=== PATIENT | female | born 1970 | race Caucasian/White ===

== ENCOUNTER → 2016-07-12 | Outpatient (CLI) | payer MEDICAID ==
[~2016-07-12] MED LIST: B121000 MCG/2 IM; CIPROFLOXACIN500 MG PO; COUMADIN; FERROUS SULFAT325 M1 PO; HYDROCODONE BIT1 T11 PO; KEFLEX500 MG PO; LEVAQUIN750 M1 PO; MOTRIN800 MG PO; OMEPRAZOLE MAGN20 MG PO; PREDNISONE10 MG PO; PROAIR HFA8.5 GM INH; PROVERA10 MG PO; VICODIN 5/500 505 MG PO
== END | disposition home or self-care (01) ==
LOC: RAD 14:59
DX: J18.9 Pneumonia, unspecified organism (principal); F17.200 Nicotine dependence, unspecified, uncomplicated

== ENCOUNTER 2016-07-24 21:11 | Emergency (ER) | payer MEDICAID ==
[~2016-07-24] VITALS: Ht 165.1 cm; Wt 120.2 kg
[2016-07-24 22:40] LABS: BASO % 0.4 % (0.0-1.0); EOS # 0.1 10*3/uL (0.0-0.4); EOS % 1.5 % (1.0-4.0); HEMATOCRIT 26.6 % (37.0-47.0); HEMOGLOBIN 7.7 g/dl (12.0-16.0); LYMPH # 1.3 10*3/uL (1.3-4.4); LYMPH % 24.9 % (27.0-41.0); MEAN CELL VOLUME 83.9 fl (81.0-99.0); MEAN CORPUSCULAR HGB 24.3 pg (27.0-31.0); MEAN CORPUSCULAR HGB CONC 28.9 g/dl (33.0-37.0); MEAN PLATELET VOLUME 10.3 fl (9.6-12.3); MONO # 0.5 10*3/uL (0.1-1.0); MONO % 8.7 % (3.0-9.0); NEUT # 3.3 10*3/uL (2.3-7.9); NEUT % 64.3 % (47.0-73.0); PLATELET COUNT AUTOMATED 147 10*3/uL (130-400); RED BLOOD COUNT 3.17 10*6/uL (4.10-5.10); RED CELL DISTRI WIDTH 17.4 % (0-14.5); WHITE BLOOD COUNT 5.2 10*3/uL (4.8-10.8)
[2016-07-24 22:54] LABS: BUN 9 mg/dl (7-24); C-REACTIVE PROTEIN 0.66 MG/DL (0-0.3); CARBON DIOXIDE 27 mmol/L (21-32); CHLORIDE 109 mmol/L (98-107); EST GLOM FILT AFRICAN AMERICAN > 60 ml/min; POTASSIUM 3.8 mmol/L (3.5-5.1); SODIUM 146 mmol/L (136-145)
[2016-07-24 22:55] LABS: GLUCOSE 104 mg/dL (65-99)
[2016-07-24 23:53] VITALS: BP 128/60
[2016-07-25] MEDS ORDERED: KEFLEX500 M1 PO (01:38)
[2016-07-25] MEDS ORDERED: LASIX20 MG PO (01:41)
== END 2016-07-25 01:59 | disposition home or self-care (01) ==
LOC: ED 21:11
PROVIDERS: Emergency Medicine Emergency Medical Services
DX: L03.116 Cellulitis of left lower limb (principal); L03.115 Cellulitis of right lower limb; I50.9 Heart failure, unspecified; E66.9 Obesity, unspecified; Z68.39 Body mass index [BMI] 39.0-39.9, adult; Z90.49 Acquired absence of other specified parts of digestive tract; Z79.899 Other long term (current) drug therapy

== ENCOUNTER → 2016-09-06 | Outpatient (CLI) | payer MEDICAID ==
[~2016-09-06] MED LIST changes: +KEFLEX500 M1 PO; +LASIX20 MG PO
[2016-09-06 16:16] LABS: BASO % 0.6 % (0.0-1.0); EOS # 0.1 10*3/uL (0.0-0.4); EOS % 1.8 % (1.0-4.0); HEMATOCRIT 35.6 % (37.0-47.0); HEMOGLOBIN 10.4 g/dl (12.0-16.0); LYMPH # 1.2 10*3/uL (1.3-4.4); LYMPH % 18.9 % (27.0-41.0); MEAN CELL VOLUME 86.8 fl (81.0-99.0); MEAN CORPUSCULAR HGB 25.4 pg (27.0-31.0); MEAN CORPUSCULAR HGB CONC 29.2 g/dl (33.0-37.0); MEAN PLATELET VOLUME 11.2 fl (9.6-12.3); MONO # 0.5 10*3/uL (0.1-1.0); MONO % 7.5 % (3.0-9.0); NEUT # 4.6 10*3/uL (2.3-7.9); PLATELET COUNT AUTOMATED 134 10*3/uL (130-400); RED CELL DISTRI WIDTH 16.5 % (0-14.5); WHITE BLOOD COUNT 6.5 10*3/uL (4.8-10.8)
== END | disposition home or self-care (01) ==
LOC: LAB 15:48
PROVIDERS: Family Medicine
DX: D50.9 Iron deficiency anemia, unspecified (principal)

== ENCOUNTER → 2016-11-23 | Outpatient (CLI) | payer MEDICAID | END | disposition home or self-care (01) | LOC: LAB 08:21 | DX: E53.8 Deficiency of other specified B group vitamins (principal) ==

== ENCOUNTER → 2016-12-22 | Outpatient (CLI) | payer MEDICAID | END | disposition home or self-care (01) | LOC: MAMMO 10:00 | DX: Z12.31 Encounter for screening mammogram for malignant neoplasm of breast (principal) ==

== ENCOUNTER → 2017-05-23 | Outpatient (CLI) | payer MEDICAID ==
[2017-05-23 13:43] LABS: BASO % 0.3 % (0.0-1.0); EOS % 1.2 % (1.0-4.0); HEMOGLOBIN 9.7 g/dl (12.0-16.0); LYMPH # 0.5 10*3/uL (1.3-4.4); MEAN CELL VOLUME 80.9 fl (81.0-99.0); MEAN CORPUSCULAR HGB 23.8 pg (27.0-31.0); MEAN CORPUSCULAR HGB CONC 29.4 g/dl (33.0-37.0); MEAN PLATELET VOLUME 10.5 fl (9.6-12.3); MONO # 0.5 10*3/uL (0.1-1.0); MONO % 14.6 % (3.0-9.0); NEUT # 2.3 10*3/uL (2.3-7.9); NEUT % 69.6 % (47.0-73.0); PLATELET COUNT AUTOMATED 116 10*3/uL (130-400); RED BLOOD COUNT 4.08 10*6/uL (4.10-5.10); RED CELL DISTRI WIDTH 16.9 % (0-14.5); WHITE BLOOD COUNT 3.4 10*3/uL (4.8-10.8)
[2017-05-23 14:13] LABS: ALBUMIN 3.5 gm/dl (3.1-4.5); ALKALINE PHOSPHATASE 80 U/L (45-117); BUN 11 mg/dl (7-24); CHLORIDE 104 mmol/L (98-107); CREATININE 1.06 mg/dL (0.55-1.02); POTASSIUM 4.1 mmol/L (3.5-5.1); SGOT/AST 9 IU/L (3-35); SGPT/ALT 16 U/L (12-78); SODIUM 139 mmol/L (136-145)
== END | disposition home or self-care (01) ==
LOC: LAB 13:21
PROVIDERS: Family Medicine
DX: L03.115 Cellulitis of right lower limb (principal); I87.2 Venous insufficiency (chronic) (peripheral)

== ENCOUNTER 2017-09-29 18:22 | Inpatient (IN) | payer MEDICAID ==
[~2017-09-29] VITALS: Ht 165.1 cm; Wt 168.5 kg
--- NOTE | ~2017-09-29 | PR ---
[place], [place] PROGRESS NOTE NAME: MAYELA CABA UNIT #: [id number] ROOM: 407 DOCTOR: LUDIN TURCIOS,FLORENCIO BIRTHDATE: [birth year] DOS: 09/29/2017 Attestation note for the consultation done on 09/29/2017. I had a [id number] encounter with the patient and agree with the assessment and plan, Radha Marina, nurse practitioner and made the necessary changes in the consult note. Mare Noland MD CM:PNTRANS [phone] FLORENCIO NOLAND MD 10/24/17 0259 interface
--- NOTE | ~2017-09-29 | PR ---
[place], [place] PROGRESS NOTE NAME: MAYELA CABA [facility] #: [id number] UNIT #: [id number] ROOM: 407 DOCTOR: ANJU ORTIZ DPM BIRTHDATE: [birth year] DOS: 10/03/2017 SUBJECTIVE: The patient was seen for followup of lower extremity cellulitis and edema of bilateral lower leg. The patient is feeling improved at this time. OBJECTIVE: Dressings intact. There is decreased edema bilateral, wounds bilateral have improved; however, the arterial Doppler revealed evidence of at least moderate arterial disease distal to the popliteal arteries bilateral, more severe left, but the runoff vessels are not identified at the ankle. ASSESSMENT: Cellulitis, wounds, bilateral lower leg edema, chronic lymphedema, venous insufficiency bilateral with peripheral vascular disease. PLAN: Evaluation and management discussed with the patient. We will follow the wounds at the office as the patient is being discharged at this time. The patient will be set up for outpatient vascular consultation due to the arterial findings and we will follow the patient accordingly. ANJU ORTIZ DPM CM:PNLADAN [id number] ANJU ORTIZ DPM 10/04/17 1038 interface
--- NOTE | ~2017-09-29 | CON ---
[place], [place] REPORT OF CONSULTATION NAME: MAYELA CABA UNIT #: [id number] ROOM: 407 DOCTOR: ANJU ORTIZ DPM BIRTHDATE: [birth year] DOS: 09/30/2017 SUBJECTIVE: The patient is a 47-year-old white female. CHIEF COMPLAINT: Drainage and swelling of both lower extremities, which she has had for beyond weeks. The patient was admitted through the Emergency Room. PAST MEDICAL HISTORY: Diastolic CHF. SURGICAL HISTORY: History of cholecystectomy. SOCIAL HISTORY: Consumes alcohol occasionally. Denies illicit drug use, former smoker, used to smoke half pack daily for several years, over 20 years ago. FAMILY HISTORY: Father at age 72 of [place]. Mother, age 70s. ALLERGIES: None. PHYSICAL EXAMINATION: EXTREMITIES: Lower extremity edema, venous insufficiency with venous stasis, bilateral lower leg ulcerations, anterior aspect, bilateral lower leg weeping, no deep sinus tract noted. Ulcerations appear superficial in nature. No deep abscess identified. Pedal pulses nonpalpable. Decreased hair growth noted. Venous Doppler is negative for DVT, bilateral. ASSESSMENT: Peripheral vascular disease, chronic venous insufficiency, venous stasis/dermatitis, bilateral lower leg with cellulitis and ulcerations. PLAN: Evaluation and management. Ordered culture of the right leg wound. Consulted ID for IV antibiotic treatment. Ordered arterial Dopplers, both lower extremities. Ordered Betadine-soaked Adaptic gauze and Kerlix to both lower legs. No compression until arterial studies are performed. Also ordered bilateral lower leg radiographs and the patient will be seen tomorrow, Monday for followup. ANJU ORTIZ DPM CM:CONSTR:REPORT OF CONSULTATION 1153 10/01/17 0151 interface
--- NOTE | ~2017-09-29 | CON ---
[place], [place] REPORT OF CON[facility]ULTATION [id number] #: [id number] ROOM: 407 DOCTOR: LOVE QUEEN,JULY BIRTHDATE: [birth year] DOS: HISTORY OF PRESENT ILLNESS: The patient is a 47-year-old morbidly obese female who was admitted from home due to drainage from bilateral lower extremities. She has multiple small lesions, a few of them are pustular. Cultures were obtained from her right leg today. No cultures have been obtained from the left leg. Gram stain is pending. She has been receiving Zosyn and vancomycin since admission. She states she has very little discomfort of the legs and really has not seen a change with them since she was admitted. She did have ultrasound of the lower extremities, which demonstrated bilateral inguinal lymphadenopathy. No DVT. X-ray of tibia and ankle negative. Chest x-ray was clear. She has been on no antibiotics at home. Blood cultures are sterile thus far. Urine culture is pending. She has had no fevers or chills at home or since admission. Her white count has been normal. ID is consulted for bilateral lower extremity cellulitis. She states she has had issues with lesions on her legs for some time now, not really able to be specific regarding length of time. She does pick at them at times. PAST MEDICAL HISTORY: As above as well as diastolic CHF. SOCIAL HISTORY: She does not work. No alcohol or illicit drug use. Remote history of brief smoking over 20 years ago. FAMILY MEDICAL HISTORY: Father with Alzheimer's, coronary artery disease, skin cancer, CVA and OR. Mother alive in her 70s. ALLERGIES: No known drug allergies. LABORATORY DATA: Cultures as reviewed above, WBC 6.1, platelets 120, BUN 9, creatinine 0.92. REVIEW OF SYSTEMS: As above in history of present illness. She does have chronic bilateral lower extremity lymphedema. Again, no fevers or chills. No nausea, vomiting or diarrhea. Has multiple areas on her legs, which she does pick, very little discomfort in her lower extremity. She does have erythema and edema. No cough or shortness of breath. No chest pain or palpitations. No dysuria or frequency. Further review of systems is unremarkable. PHYSICAL EXAMINATION: VITAL SIGNS: Temperature 98.4, pulse 87, respirations 20, BP 129/68. GENERAL: A 47-year-old morbidly obese, female in no acute distress. HEENT: Normocephalic, no thrush. LUNGS: Clear to auscultation bilaterally. Respirations even and unlabored. HEART: Regular rhythm. No murmur appreciated. ABDOMEN: Soft, obese, and nontender. Positive bowel sounds. EXTREMITIES: Lymphedema, bilateral lower extremities with mild erythema of bilateral lower extremities and multiple small superficial wounds, some of which especially in the left lower extremity are pustular. ASSESSMENT: Bilateral lower extremity cellulitis, likely methicillin-resistant [place], [place] REPORT OF CONSULTATION NAME: MAYELA CABA UNIT #: [id number] ROOM: 407 DOCTOR: LOVE QUEENJULY BIRTHDATE: [birth year] Staphylococcus aureus given the clinical appearance. PLAN: We will continue the vancomycin, stop the Zosyn. I did discuss with the patient not to pick at her wounds. Follow up on the cultures and adjust antibiotics accordingly and I would check an MRSA screen of her nares. Case discussed with Dr. Montgomery. DIONNE ALEMAN CNP Mare Montgomery MD CM:CONSTR:REPORT OF CONSULTATION 184 09/30/171900 interface
--- NOTE | ~2017-09-29 | PR ---
[place], [place] PROGRESS NOTE NAME: MAYELA CABA UNIT #: [id number] ROOM: 407 DOCTOR: LUDIN TURCIOS,FLORENCIO BIRTHDATE: [birth year] DOS: Attestation note to the progress note done on 10/01/2017. I did the [id number] encounter. Agree with the assessment and plan done by Radha Marina nurse practitioner. Agree with the assessment and plan and made the necessary changes in the report. Mare Noland MD CM:PNTRANS [phone] FLORENCIO NOLAND MD 10/24/17 0139 interface
--- NOTE | ~2017-09-29 | PR ---
[place], [place] PROGRESS NOTE NAME: [facility] [id number] UNIT #: [id number] ROOM: 407 DOCTOR: ARNULFO YIP DPM BIRTHDATE: [birth year] DOS: 10/02/2017 SUBJECTIVE: This patient is seen for followup of swelling in both lower extremity and cellulitis. She states the swelling and redness is much better. Complains of only minimal discomfort. OBJECTIVE: Neurovascular status is unchanged. There is still lower extremity edema, chronic venous insufficiency and changes noted. Ulcerations noted at the anterior aspect of the right lower leg with minimal serous drainage. It has actually dried up quite a bit. No increased temperature. Minimal erythema. Negative Homans sign bilaterally. Decreased pulses are noted. No signs of abscess or significant infection at this time. Venous Doppler was negative for DVT. Arterial studies still pending. X-rays were essentially negative. ASSESSMENT: Chronic venous insufficiency with stasis changes, ulcerations and improving cellulitis. PLAN: Evaluation and management. Continue with current daily wound care. Continue with IV antibiotics per Infectious Disease and see what her arterial Doppler show. Encourage to elevate her legs and reevaluate tomorrow. ARNULFO YIP DPM CM:DRU [id number] ARNULFO YIP DPM 10/03/17 0923 interface
--- NOTE | ~2017-09-29 | PR ---
[place], [place] PROGRESS NOTE NAME: MAYELA CABA [facility] #: [id number] UNIT #: [id number] ROOM: 407 DOCTOR: LOVE QUEENJULY BIRTHDATE: [birth year] DOS: 10/01/2017 SUBJECTIVE: The patient is a 47-year-old morbidly obese female who is being followed for bilateral lower extremity cellulitis. She had culture of the left leg wound done yesterday, which has gram-positive cocci in pairs and clusters, which would be consistent with staph. She has multiple small superficial areas on bilateral lower extremities, which she has admitted to picking at. Her MRSA screen is pending. She remains on IV vancomycin. Alert and oriented. Denies any fevers, chills, nausea, vomiting or diarrhea. Complains of itching of her bilateral lower extremities, not so much pain. She has had no fevers. LABORATORY DATA: Show WBC is 5.9, platelets 140. BUN 11, creatinine 0.96. Vancomycin trough 17.4. Cultures as above. PHYSICAL EXAMINATION: VITAL SIGNS: Temperature 98.0, pulse 85, respirations 20, BP 126/62. GENERAL: A 47-year-old morbidly obese female, in no acute distress. HEAD, EYES, EARS, NOSE AND THROAT: Normocephalic. No thrush. LUNGS: Clear to auscultation bilaterally. Respirations even and unlabored. HEART: Regular rhythm. No murmur appreciated. ABDOMEN: Soft, obese. EXTREMITIES: With lymphedema to bilateral lower extremities, right greater than left as well as erythema on the left does appear to be improving in color. She has numerous small open areas, few are small closed pustules. SKIN: Otherwise warm, dry, free of rashes. ASSESSMENT: Bilateral lower extremity cellulitis, likely due to staph exacerbated by the patient picking at her scabs. PLAN: Discussed with the patient possible Staph colonization and to not pick at her wounds. We will continue the IV vancomycin, follow up on MRSA screen and wound culture. She would likely benefit from referral to an outpatient Lymphedema Clinic upon discharge. Anticipate she could probably be switched over to p.o. antibiotics in the next 24-48 hours. Case discussed with Dr. Montgomery. DIONNE BERNICE ALEMAN [place], [place] PROGRESS NOTE NAME: JANICE CABAKRYSTIN Bennett UNIT #: [id number] ROOM: 407 DOCTOR: LOVE QUEENJULY BIRTHDATE: [birth year] Mare Montgomery MD CM:PNLADAN [id number] JULY LOVE QUEEN 10/01/17 1935 interface
[2017-09-29 18:24] VITALS: BP 158/95
[2017-09-29 19:24] LABS: BASO % 0.5 % (0.0-1.0); EOS # 0.1 10*3/uL (0.0-0.4); HEMATOCRIT 40.9 % (37.0-47.0); HEMOGLOBIN 12.3 g/dl (12.0-16.0); LYMPH # 1.5 10*3/uL (1.3-4.4); LYMPH % 22.3 % (27.0-41.0); MEAN CELL VOLUME 90.5 fl (81.0-99.0); MEAN CORPUSCULAR HGB 27.2 pg (27.0-31.0); MEAN CORPUSCULAR HGB CONC 30.1 g/dl (33.0-37.0); MEAN PLATELET VOLUME 10.2 fl (9.6-12.3); MONO # 0.5 10*3/uL (0.1-1.0); MONO % 6.8 % (3.0-9.0); NEUT # 4.5 10*3/uL (2.3-7.9); NEUT % 68.1 % (47.0-73.0); PLATELET COUNT AUTOMATED 151 10*3/uL (130-400); RED BLOOD COUNT 4.52 10*6/uL (4.10-5.10); RED CELL DISTRI WIDTH 14.2 % (0-14.5); WHITE BLOOD COUNT 6.6 10*3/uL (4.8-10.8)
[2017-09-29 19:41] LABS: ALBUMIN 3.4 gm/dl (3.1-4.5); ALKALINE PHOSPHATASE 87 U/L (45-117); BUN 10 mg/dl (7-24); CHLORIDE 107 mmol/L (98-107); CREATININE 0.87 mg/dL (0.55-1.02); POTASSIUM 3.6 mmol/L (3.5-5.1); SGOT/AST 9 IU/L (3-35); SGPT/ALT 16 U/L (12-78); SODIUM 137 mmol/L (136-145); TOTAL PROTEIN 8.2 gm/dL (6.4-8.2)
[2017-09-29 20:42] VITALS: BP 125/71
[2017-09-29 21:00] VITALS: BP 125/71
[2017-09-29 23:08] LABS: BILIRUBIN NEGATIVE (NEGATIVE); BLOOD 3+ (NEGATIVE); CLARITY CLEAR (CLEAR); COLOR YELLOW (YELLOW); GLUCOSE NEGATIVE (NEGATIVE); KETONE NEGATIVE (NEGATIVE); LEUKO ESTERASE 1+ (NEGATIVE); NITRITE NEGATIVE (NEGATIVE); PH 6.5 (5.0-9.0); SPECIFIC GRAVITY 1.025 (1.005-1.030); UROBILINOGEN 0.2 E.U./dl (0.2-1.0)
[2017-09-29 23:16] LABS: BACTERIA TRACE; RBC 16-20 rbc/hpf (0-2)
[2017-09-29 23:17] LABS: EPITHELIAL CELLS 20-25
[2017-09-30] VITALS: BP 128/74
[2017-09-30 06:06] LABS: BUN 9 mg/dl (7-24); CHLORIDE 110 mmol/L (98-107); CHOLESTEROL 118 mg/dL (<200); CREATININE 0.92 mg/dL (0.55-1.02); PHOSPHOROUS 3.1 mg/dL (2.5-4.9); POTASSIUM 3.5 mmol/L (3.5-5.1); SODIUM 143 mmol/L (136-145); TRIGLYCERIDES 104 mg/dl (<150); VLDL CHOLESTEROL 21 mg/dL (6-40)
[2017-09-30 06:11] LABS: ACT PARTIAL THROMBO TIME 22.7 SECONDS (20.8-31.5)
[2017-09-30 06:14] LABS: HDL CHOLESTEROL 36 mg/dl (40-60); LDL CHOLESTEROL 61 mg/dL (9-159)
[2017-09-30 06:37] LABS: BASO % 0.5 % (0.0-1.0); EOS # 0.1 10*3/uL (0.0-0.4); EOS % 1.8 % (1.0-4.0); HEMATOCRIT 34.4 % (37.0-47.0); HEMOGLOBIN 10.6 g/dl (12.0-16.0); LYMPH # 1.2 10*3/uL (1.3-4.4); LYMPH % 18.8 % (27.0-41.0); MEAN CELL VOLUME 90.1 fl (81.0-99.0); MEAN CORPUSCULAR HGB 27.7 pg (27.0-31.0); MEAN CORPUSCULAR HGB CONC 30.8 g/dl (33.0-37.0); MEAN PLATELET VOLUME 10.7 fl (9.6-12.3); MONO # 0.4 10*3/uL (0.1-1.0); MONO % 6.4 % (3.0-9.0); NEUT # 4.4 10*3/uL (2.3-7.9); NEUT % 72.2 % (47.0-73.0); PLATELET COUNT AUTOMATED 120 10*3/uL (130-400); RED BLOOD COUNT 3.82 10*6/uL (4.10-5.10); WHITE BLOOD COUNT 6.1 10*3/uL (4.8-10.8)
[2017-09-30 07:39] LABS: VITAMIN D, 25-HYDROXY 16.3 ng/mL (30-100)
[2017-09-30 08:00] VITALS: BP 113/55
[2017-09-30 12:00] VITALS: BP 143/66
[2017-09-30 16:00] VITALS: BP 129/68
[2017-09-30 20:00] VITALS: BP 124/76
[2017-10-01] VITALS: BP 116/65
[2017-10-01 08:00] VITALS: BP 146/66
[2017-10-01 08:00] LABS: BASO % 0.5 % (0.0-1.0); EOS # 0.1 10*3/uL (0.0-0.4); EOS % 2.2 % (1.0-4.0); HEMATOCRIT 35.6 % (37.0-47.0); HEMOGLOBIN 11.2 g/dl (12.0-16.0); LYMPH # 1.3 10*3/uL (1.3-4.4); LYMPH % 22.2 % (27.0-41.0); MEAN CELL VOLUME 88.6 fl (81.0-99.0); MEAN CORPUSCULAR HGB 27.9 pg (27.0-31.0); MEAN CORPUSCULAR HGB CONC 31.5 g/dl (33.0-37.0); MEAN PLATELET VOLUME 10.5 fl (9.6-12.3); MONO # 0.5 10*3/uL (0.1-1.0); MONO % 8.7 % (3.0-9.0); NEUT # 3.9 10*3/uL (2.3-7.9); NEUT % 66.1 % (47.0-73.0); PLATELET COUNT AUTOMATED 140 10*3/uL (130-400); RED BLOOD COUNT 4.02 10*6/uL (4.10-5.10); RED CELL DISTRI WIDTH 14.2 % (0-14.5); WHITE BLOOD COUNT 5.9 10*3/uL (4.8-10.8)
[2017-10-01 08:22] LABS: BUN 11 mg/dl (7-24); CHLORIDE 106 mmol/L (98-107); CREATININE 0.96 mg/dL (0.55-1.02); POTASSIUM 3.6 mmol/L (3.5-5.1); SODIUM 142 mmol/L (136-145)
[2017-10-01 12:00] VITALS: BP 126/62
[2017-10-01 16:00] VITALS: BP 121/74
[2017-10-01 20:00] VITALS: BP 133/72
[2017-10-02] VITALS: BP 109/53
[2017-10-02 08:00] VITALS: BP 130/54
[2017-10-02 12:00] VITALS: BP 109/68
[2017-10-02 16:00] VITALS: BP 119/73
[2017-10-02 20:00] VITALS: BP 109/64
[2017-10-03] VITALS: BP 123/56
[2017-10-03 07:29] LABS: BASO % 0.5 % (0.0-1.0); EOS # 0.2 10*3/uL (0.0-0.4); HEMATOCRIT 38.3 % (37.0-47.0); HEMOGLOBIN 11.8 g/dl (12.0-16.0); LYMPH # 1.3 10*3/uL (1.3-4.4); LYMPH % 23.4 % (27.0-41.0); MEAN CELL VOLUME 88.7 fl (81.0-99.0); MEAN CORPUSCULAR HGB 27.3 pg (27.0-31.0); MEAN CORPUSCULAR HGB CONC 30.8 g/dl (33.0-37.0); MONO # 0.5 10*3/uL (0.1-1.0); NEUT # 3.6 10*3/uL (2.3-7.9); NEUT % 64.9 % (47.0-73.0); PLATELET COUNT AUTOMATED 147 10*3/uL (130-400); RED BLOOD COUNT 4.32 10*6/uL (4.10-5.10); RED CELL DISTRI WIDTH 14.2 % (0-14.5); WHITE BLOOD COUNT 5.6 10*3/uL (4.8-10.8)
[2017-10-03 07:48] LABS: BUN 14 mg/dl (7-24); CHLORIDE 105 mmol/L (98-107); CREATININE 0.84 mg/dL (0.55-1.02); POTASSIUM 3.9 mmol/L (3.5-5.1); SODIUM 139 mmol/L (136-145)
[2017-10-03 08:00] VITALS: BP 101/56
[2017-10-03] MEDS ORDERED: VITAMIN D-32000 UNIT PO (11:08)
[2017-10-03] MEDS ORDERED: B12,B-12,B 12500 MC1 PO (11:08)
[2017-10-03] MEDS ORDERED: HYDROXYZINE PAM25 M1 PO (11:08)
[2017-10-03] MEDS ORDERED: DOXYCYCLINE100 MG PO (11:08)
[2017-10-03] MEDS ORDERED: LASIX20 MG PO (13:01)
[2017-10-03] MEDS ORDERED: BACTROBAN NASAL1 GM NAS (13:06)
[2017-11-05] MEDS ORDERED: AMINOPHYLLIN200 MG PO (15:44)
== END 2017-10-03 12:10 | disposition home or self-care (01) | DRG 603 ==
LOC: ED 18:22 → EDHOLD 19:24 → 4E 19:24
PROVIDERS: Internal Medicine; Internal Medicine Nephrology; Nurse Practitioner
DX: L03.115 Cellulitis of right lower limb (principal); E87.2 Acidosis; E44.0 Moderate protein-calorie malnutrition; E66.01 Morbid (severe) obesity due to excess calories; I50.32 Chronic diastolic (congestive) heart failure; N39.0 Urinary tract infection, site not specified; L97.929 Non-pressure chronic ulcer of unspecified part of left lower leg with unspecified severity; L97.919 Non-pressure chronic ulcer of unspecified part of right lower leg with unspecified severity; Z68.44 Body mass index [BMI] 60.0-69.9, adult; F17.210 Nicotine dependence, cigarettes, uncomplicated; I73.9 Peripheral vascular disease, unspecified; D64.9 Anemia, unspecified; E53.8 Deficiency of other specified B group vitamins; E55.9 Vitamin D deficiency, unspecified; B95.61 Methicillin susceptible Staphylococcus aureus infection as the cause of diseases classified elsewhere; I87.8 Other specified disorders of veins; R73.9 Hyperglycemia, unspecified; F42.4 Excoriation (skin-picking) disorder; I87.2 Venous insufficiency (chronic) (peripheral); L03.116 Cellulitis of left lower limb; Z90.49 Acquired absence of other specified parts of digestive tract; Z79.899 Other long term (current) drug therapy; Z80.8 Family history of malignant neoplasm of other organs or systems; Z82.3 Family history of stroke; Z82.49 Family history of ischemic heart disease and other diseases of the circulatory system; Z82.0 Family history of epilepsy and other diseases of the nervous system

== ENCOUNTER 2017-10-22 20:36 | Emergency (ER) | payer MEDICAID ==
[~2017-10-22] VITALS: Ht 165.1 cm; Wt 168.3 kg
--- NOTE | ~2017-10-22 | EKG ---
[place], [place] ELECTROCARDIOGRAM REPORT NAME: MAYELA CABA UNIT #: [id number] ROOM: DOCTOR: EPIPHANY DRAFT REPORT BIRTHDATE: [birth year] [facility] Test Date: 2017-10-22 Test Time: 21:20:47 Pat Name: MAYELA CABA Department: ER Room: 20 Gender: F Child And Adolescent Therapist: : 1970 Requested By: LUZMA COOPER PA-C Order Number: [id number] Reading MD: Toby Marina MD Measurements Intervals [place] Rate: 98 P: 62 [place]: 161 QRS: -22 QRSD: 86 T: 29 QT: 359 QTc: 459 Interpretive Statements Sinus rhythm Borderline left axis deviation Low voltage, precordial leads Electronically Signed On 10-24-2017 9:36:03 PDT by Toby Marina MD CM:EKGRPT:ELECTROCARDIOGRAM REPORT 19 0936 LUZMA COOPER PA-C EPIPHANY DRAFT REPORT LUZMA COOPER PA-C
[~2017-10-22 20:36] MED LIST changes: +B12,B-12,B 12500 MC1 PO; +BACTROBAN NASAL1 GM NAS; +DOXYCYCLINE100 MG PO; +HYDROXYZINE PAM25 M1 PO; +VITAMIN D-32000 UNIT PO
[2017-10-22 20:38] VITALS: BP 166/87
[2017-10-22 21:26] LABS: BASO % 0.3 % (0.0-1.0); EOS # 0.1 10*3/uL (0.0-0.4); EOS % 1.8 % (1.0-4.0); HEMATOCRIT 38.1 % (37.0-47.0); HEMOGLOBIN 11.4 g/dl (12.0-16.0); LYMPH # 1.3 10*3/uL (1.3-4.4); LYMPH % 21.3 % (27.0-41.0); MEAN CELL VOLUME 89.9 fl (81.0-99.0); MEAN CORPUSCULAR HGB 26.9 pg (27.0-31.0); MEAN CORPUSCULAR HGB CONC 29.9 g/dl (33.0-37.0); MEAN PLATELET VOLUME 10.8 fl (9.6-12.3); MONO # 0.5 10*3/uL (0.1-1.0); MONO % 7.7 % (3.0-9.0); NEUT # 4.3 10*3/uL (2.3-7.9); NEUT % 68.7 % (47.0-73.0); PLATELET COUNT AUTOMATED 133 10*3/uL (130-400); RED BLOOD COUNT 4.24 10*6/uL (4.10-5.10); RED CELL DISTRI WIDTH 14.9 % (0-14.5); WHITE BLOOD COUNT 6.2 10*3/uL (4.8-10.8)
[2017-10-22 21:42] LABS: ALBUMIN 3.4 gm/dl (3.1-4.5); ALKALINE PHOSPHATASE 63 U/L (45-117); BUN 9 mg/dl (7-24); CHLORIDE 105 mmol/L (98-107); CREATININE 0.97 mg/dL (0.55-1.02); POTASSIUM 3.6 mmol/L (3.5-5.1); SGOT/AST 11 IU/L (3-35); SGPT/ALT 16 U/L (12-78); SODIUM 142 mmol/L (136-145); TOTAL PROTEIN 7.5 gm/dL (6.4-8.2)
[2017-10-22 21:45] LABS: TROPONIN I < 0.015 ng/ml (<0.045)
[2017-10-22] MEDS ORDERED: LASIX20 MG PO (22:08)
[2017-11-05] MEDS ORDERED: AMINOPHYLLIN200 MG PO (15:44)
== END 2017-10-22 22:14 | disposition home or self-care (01) ==
LOC: ED 20:36
PROVIDERS: Physician Assistant
DX: R60.0 Localized edema (principal); Z87.891 Personal history of nicotine dependence

== ENCOUNTER 2017-11-07 19:24 | Emergency (ER) | payer MEDICAID ==
[~2017-11-07] VITALS: Ht 165.1 cm; Wt 168.3 kg
[~2017-11-07 19:24] MED LIST changes: +AMINOPHYLLIN200 MG PO
[2017-11-07 20:18] LABS: BASO % 0.6 % (0.0-1.0); EOS # 0.1 10*3/uL (0.0-0.4); HEMATOCRIT 37.2 % (37.0-47.0); HEMOGLOBIN 11.3 g/dl (12.0-16.0); LYMPH # 1.3 10*3/uL (1.3-4.4); LYMPH % 25.7 % (27.0-41.0); MEAN CELL VOLUME 90.1 fl (81.0-99.0); MEAN CORPUSCULAR HGB 27.4 pg (27.0-31.0); MEAN CORPUSCULAR HGB CONC 30.4 g/dl (33.0-37.0); MEAN PLATELET VOLUME 11.1 fl (9.6-12.3); MONO # 0.4 10*3/uL (0.1-1.0); MONO % 7.3 % (3.0-9.0); NEUT # 3.3 10*3/uL (2.3-7.9); NEUT % 64.2 % (47.0-73.0); PLATELET COUNT AUTOMATED 169 10*3/uL (130-400); RED BLOOD COUNT 4.13 10*6/uL (4.10-5.10); RED CELL DISTRI WIDTH 15.1 % (0-14.5); WHITE BLOOD COUNT 5.1 10*3/uL (4.8-10.8)
[2017-11-07 20:20] VITALS: BP 110/64
[2017-11-07 20:34] LABS: ALBUMIN 3.6 gm/dl (3.1-4.5); ALKALINE PHOSPHATASE 75 U/L (45-117); BUN 10 mg/dl (7-24); CHLORIDE 104 mmol/L (98-107); CREATININE 1.05 mg/dL (0.55-1.02); POTASSIUM 3.6 mmol/L (3.5-5.1); SGOT/AST 6 IU/L (3-35); SGPT/ALT 22 U/L (12-78); SODIUM 139 mmol/L (136-145); TOTAL PROTEIN 7.9 gm/dL (6.4-8.2)
[2017-11-07] MEDS ORDERED: CEPHALEXIN500 M1 PO (20:35)
[2017-11-07] MEDS ORDERED: CLINDAMYCIN HC300 MG PO (20:35)
== END 2017-11-07 20:49 | disposition home or self-care (01) ==
LOC: ED 19:24
PROVIDERS: Nurse Practitioner
DX: L03.116 Cellulitis of left lower limb (principal); L03.115 Cellulitis of right lower limb; Z87.891 Personal history of nicotine dependence; Z90.49 Acquired absence of other specified parts of digestive tract; Z79.899 Other long term (current) drug therapy

== ENCOUNTER → 2019-04-08 | Outpatient (CLI) | payer MEDICAID ==
[~2019-04-08] MED LIST changes: +CEPHALEXIN500 M1 PO; +CLINDAMYCIN HC300 MG PO; +DOXYCYCLINE MO100 M1 PO; +LEVOFLOXACIN750 M2 PO; +NATURE'S BLEND F1 MG PO; +NYSTOP60 GM T; +TERBINAFINE250 MG PO; +VITAMIN D32000 UNI1 PO
== END | disposition home or self-care (01) ==
LOC: MAMMO 03-25 08:30
DX: Z12.39 Encounter for other screening for malignant neoplasm of breast (principal)

== ENCOUNTER → 2020-04-30 | Outpatient (CLI) | payer MEDICAID ==
[2020-04-30 11:28] LABS: BASO % 0.7 % (0.0-1.0); EOS # 0.1 10*3/uL (0.0-0.4); EOS % 1.5 % (1.0-4.0); HEMATOCRIT 37.5 % (37.0-47.0); LYMPH # 1.4 10*3/uL (1.3-4.4); LYMPH % 23.1 % (27.0-41.0); MEAN CELL VOLUME 77.8 fl (81.0-99.0); MEAN CORPUSCULAR HGB 21.2 pg (27.0-31.0); MEAN CORPUSCULAR HGB CONC 27.2 g/dl (33.0-37.0); MEAN PLATELET VOLUME 10.4 fl (9.6-12.3); MONO # 0.4 10*3/uL (0.1-1.0); MONO % 5.7 % (3.0-9.0); NEUT # 4.2 10*3/uL (2.3-7.9); NEUT % 68.8 % (47.0-73.0); PLATELET COUNT AUTOMATED 202 10*3/uL (130-400); RED BLOOD COUNT 4.82 10*6/uL (4.10-5.10); RED CELL DISTRI WIDTH 18.5 % (0-14.5); WHITE BLOOD COUNT 6.1 10*3/uL (4.8-10.8)
[2020-04-30 11:45] LABS: ALBUMIN 3.5 gm/dl (3.1-4.5); BUN 7 mg/dl (7-24); CHLORIDE 110 mmol/L (98-107); CHOLESTEROL 166 mg/dL (<200); POTASSIUM 3.8 mmol/L (3.5-5.1); SGOT/AST 10 IU/L (3-35); SGPT/ALT 28 U/L (12-78); SODIUM 140 mmol/L (136-145); TOTAL PROTEIN 7.8 gm/dL (6.4-8.2); TRIGLYCERIDES 179 mg/dl (<150); VLDL CHOLESTEROL 36 mg/dL (6-40)
[2020-04-30 11:52] LABS: ALKALINE PHOSPHATASE 82 U/L (45-117); HDL CHOLESTEROL 43 mg/dl (40-60); LDL CHOLESTEROL 87 mg/dL (9-159)
== END | disposition home or self-care (01) ==
LOC: LAB 10:48 → MAMMO 11:30
PROVIDERS: ATTEND Internal Medicine
DX: Z12.31 Encounter for screening mammogram for malignant neoplasm of breast (principal); D52.9 Folate deficiency anemia, unspecified; D51.9 Vitamin B12 deficiency anemia, unspecified; R79.89 Other specified abnormal findings of blood chemistry; E55.9 Vitamin D deficiency, unspecified; R53.81 Other malaise; I10 Essential (primary) hypertension; E78.5 Hyperlipidemia, unspecified; E03.9 Hypothyroidism, unspecified; N64.89 Other specified disorders of breast

== ENCOUNTER → 2021-06-25 | Outpatient (CLI) | payer OTHER ==
[2021-06-25 08:38] LABS: ALKALINE PHOSPHATASE 79 U/L (45-117); BUN 15 mg/dl (7-24); CHLORIDE 104 mmol/L (98-107); CPK 75 U/L (26-192); CREATININE 1.06 mg/dL (0.55-1.02); POTASSIUM 3.6 mmol/L (3.5-5.1); SGOT/AST 7 IU/L (3-35); SGPT/ALT 16 U/L (12-78); SODIUM 138 mmol/L (136-145); TOTAL PROTEIN 7.6 gm/dL (6.4-8.2); TRIGLYCERIDES 123 mg/dl (<150)
[2021-06-25 08:42] LABS: CHOLESTEROL 111 mg/dL (<200); LDL CHOLESTEROL 45 mg/dL (9-159)
== END | disposition home or self-care (01) ==
LOC: LAB 07:54
PROVIDERS: ATTEND Internal Medicine
DX: E11.9 Type 2 diabetes mellitus without complications (principal); E78.2 Mixed hyperlipidemia

== ENCOUNTER → 2022-02-23 | Outpatient (CLI) | payer OTHER | END | disposition home or self-care (01) | LOC: MAMMO 02-07 09:00 | PROVIDERS: ATTEND Internal Medicine | DX: Z12.31 Encounter for screening mammogram for malignant neoplasm of breast (principal) ==

== ENCOUNTER → 2022-09-23 | Outpatient (CLI) | payer OTHER ==
[2022-09-23 09:24] LABS: BASO # 0.1 10*3/uL (0.0-0.1); BASO % 0.7 % (0.0-1.0); EOS # 0.1 10*3/uL (0.0-0.4); EOS % 1.3 % (1.0-4.0); HEMATOCRIT 38.8 % (37.0-47.0); LYMPH # 1.6 10*3/uL (1.3-4.4); LYMPH % 22.3 % (27.0-41.0); MEAN CELL VOLUME 81.7 fl (81.0-99.0); MEAN CORPUSCULAR HGB 23.8 pg (27.0-31.0); MEAN CORPUSCULAR HGB CONC 29.1 g/dl (33.0-37.0); MONO # 0.5 10*3/uL (0.1-1.0); MONO % 6.7 % (3.0-9.0); NEUT # 4.8 10*3/uL (2.3-7.9); NEUT % 68.7 % (47.0-73.0); PLATELET COUNT AUTOMATED 168 10*3/uL (130-400); RED BLOOD COUNT 4.75 10*6/uL (4.10-5.10); RED CELL DISTRI WIDTH 16.4 % (0-14.5)
[2022-09-23 10:00] LABS: VITAMIN D, 25-HYDROXY 36.9 ng/mL (30-100)
[2022-09-23 10:01] LABS: ALKALINE PHOSPHATASE 90 U/L (46-116); BUN 12 mg/dl (9-23); CHLORIDE 101 mmol/L (98-107); CHOLESTEROL 145 mg/dL (<200); FREE T4 1.07 ng/dl (0.89-1.76); LDL CHOLESTEROL 75 mg/dL (9-159); POTASSIUM 3.7 mmol/L (3.4-5.1); SGPT/ALT 10 U/L (10-49); THYROID STIM HORMONE (HS) 3.758 uIU/ml (0.550-4.780); TOTAL PROTEIN 7.8 gm/dL (6.0-8.0); TRIGLYCERIDES 147 mg/dl (<150)
== END | disposition home or self-care (01) ==
LOC: LAB 09:00
PROVIDERS: ATTEND Internal Medicine
DX: I10 Essential (primary) hypertension (principal); E78.2 Mixed hyperlipidemia; E11.9 Type 2 diabetes mellitus without complications; E55.9 Vitamin D deficiency, unspecified; Z68.44 Body mass index [BMI] 60.0-69.9, adult

== ENCOUNTER → 2023-07-03 | Outpatient (CLI) | payer OTHER ==
[2023-07-03 08:45] LABS: BASO # 0.1 10*3/uL (0.0-0.1); BASO % 0.7 % (0.0-1.0); EOS # 0.1 10*3/uL (0.0-0.4); EOS % 1.5 % (1.0-4.0); HEMATOCRIT 41.2 % (37.0-47.0); LYMPH # 1.7 10*3/uL (1.3-4.4); LYMPH % 24.9 % (27.0-41.0); MEAN CELL VOLUME 84.9 fl (81.0-99.0); MEAN CORPUSCULAR HGB 25.4 pg (27.0-31.0); MEAN CORPUSCULAR HGB CONC 29.9 g/dl (33.0-37.0); MEAN PLATELET VOLUME 10.9 fl (9.6-12.3); MONO # 0.5 10*3/uL (0.1-1.0); MONO % 7.5 % (3.0-9.0); NEUT # 4.4 10*3/uL (2.3-7.9); NEUT % 65.3 % (47.0-73.0); PLATELET COUNT AUTOMATED 173 10*3/uL (130-400); RED BLOOD COUNT 4.85 10*6/uL (4.10-5.10); RED CELL DISTRI WIDTH 16.7 % (0-14.5); WHITE BLOOD COUNT 6.8 10*3/uL (4.8-10.8)
[2023-07-03 09:27] LABS: VITAMIN D, 25-HYDROXY 33.8 ng/mL (30-100)
[2023-07-03 09:42] LABS: ALKALINE PHOSPHATASE 87 U/L (46-116); BUN 11 mg/dl (9-23); CHLORIDE 101 mmol/L (98-107); CHOLESTEROL 137 mg/dL (<200); CPK 88 U/L (34-171); FREE T4 1.11 ng/dl (0.89-1.76); LDL CHOLESTEROL 67 mg/dL (9-159); POTASSIUM 3.5 mmol/L (3.4-5.1); SGPT/ALT 13 U/L (5-49); TOTAL PROTEIN 7.9 gm/dL (6.0-8.0); TRIGLYCERIDES 139 mg/dl (<150)
== END | disposition home or self-care (01) ==
LOC: LAB 07:54
PROVIDERS: ATTEND Internal Medicine
DX: I10 Essential (primary) hypertension (principal); E11.9 Type 2 diabetes mellitus without complications; E78.2 Mixed hyperlipidemia; E55.9 Vitamin D deficiency, unspecified

== ENCOUNTER → 2023-10-09 | Outpatient (CLI) | payer OTHER ==
[2023-10-09 09:40] LABS: BASO # 0.1 10*3/uL (0.0-0.1); BASO % 0.8 % (0.0-1.0); EOS # 0.1 10*3/uL (0.0-0.4); HEMATOCRIT 42.9 % (37.0-47.0); LYMPH # 1.6 10*3/uL (1.3-4.4); LYMPH % 21.2 % (27.0-41.0); MEAN CELL VOLUME 84.1 fl (81.0-99.0); MEAN CORPUSCULAR HGB 25.9 pg (27.0-31.0); MEAN CORPUSCULAR HGB CONC 30.8 g/dl (33.0-37.0); MEAN PLATELET VOLUME 10.4 fl (9.6-12.3); MONO # 0.5 10*3/uL (0.1-1.0); MONO % 6.5 % (3.0-9.0); NEUT # 5.3 10*3/uL (2.3-7.9); NEUT % 69.5 % (47.0-73.0); PLATELET COUNT AUTOMATED 169 10*3/uL (130-400); RED CELL DISTRI WIDTH 15.9 % (0-14.5); WHITE BLOOD COUNT 7.7 10*3/uL (4.8-10.8)
[2023-10-09 10:14] LABS: FREE T4 1.25 ng/dl (0.89-1.76); POTASSIUM 3.6 mmol/L (3.4-5.1); TOTAL PROTEIN 8.3 gm/dL (6.0-8.0)
== END | disposition home or self-care (01) ==
LOC: LAB 08:48 → MAMMO 10:30
PROVIDERS: ATTEND Internal Medicine
DX: Z12.31 Encounter for screening mammogram for malignant neoplasm of breast (principal); I10 Essential (primary) hypertension; E11.9 Type 2 diabetes mellitus without complications; Z68.44 Body mass index [BMI] 60.0-69.9, adult

== ENCOUNTER → 2024-10-17 | Outpatient (CLI) | payer OTHER | END | disposition home or self-care (01) | LOC: MAMMO 08:06 | PROVIDERS: ATTEND Nurse Practitioner Women's Health | DX: Z12.31 Encounter for screening mammogram for malignant neoplasm of breast (principal); R92.323 Mammographic fibroglandular density, bilateral breasts ==

== ENCOUNTER → 2024-12-10 | Outpatient (CLI) | payer OTHER ==
[2024-12-10 07:55] LABS: BASO # 0.0 10*3/uL (0.0-0.1); BASO % 0.4 % (0.0-1.0); EOS # 0.1 10*3/uL (0.0-0.4); EOS % 1.1 % (1.0-4.0); MEAN CELL VOLUME 82.5 fl (81.0-99.0); MEAN CORPUSCULAR HGB 24.8 pg (27.0-31.0); MEAN PLATELET VOLUME 10.7 fl (9.6-12.3); MONO # 0.5 10*3/uL (0.1-1.0); MONO % 7.2 % (3.0-9.0); NEUT # 4.9 10*3/uL (2.3-7.9); NEUT % 69.3 % (47.0-73.0); NUCLEATED RED BLOOD CELL 0.0 % (0.0-0.0); NUCLEATED RED BLOOD CELL 0.0 10*3/uL (0.0-0.0); PLATELET COUNT AUTOMATED 168 10*3/uL (130-400); RED CELL DISTRI WIDTH 16.0 % (0-14.5)
[2024-12-10 08:31] LABS: BUN 18 mg/dl (9-23); FREE T4 1.31 ng/dl (0.89-1.76); LDL CHOLESTEROL 45 mg/dL (9-159); SGPT/ALT 16 U/L (5-49)
[2024-12-10 09:00] LABS: VITAMIN D, 25-HYDROXY 42.3 ng/mL (30-100)
== END | disposition home or self-care (01) ==
LOC: LAB 07:37
PROVIDERS: ATTEND Internal Medicine
DX: I12.9 Hypertensive chronic kidney disease with stage 1 through stage 4 chronic kidney disease, or unspecified chronic kidney disease (principal); E11.22 Type 2 diabetes mellitus with diabetic chronic kidney disease; N18.9 Chronic kidney disease, unspecified; E78.2 Mixed hyperlipidemia; R03.0 Elevated blood-pressure reading, without diagnosis of hypertension; E55.9 Vitamin D deficiency, unspecified; E53.9 Vitamin B deficiency, unspecified; R53.83 Other fatigue; E66.01 Morbid (severe) obesity due to excess calories; E66.813 Obesity, class 3